=== PATIENT | female | born 1980 | race Caucasian/White ===

== ENCOUNTER 2017-02-08 14:53 | Emergency (ER) | payer SELFPAY ==
[2017-02-08 15:06] VITALS: BP 114/96; PULSE 117; RESP 16; TEMP 98.6; O2SAT 96
--- NOTE | 2017-02-08 15:10 | EDPHY ---
H & P Stated Complaint: seizure Time Seen by Provider: 02/08/17 15:07 HPI/ROS: CHIEF COMPLAINT: Seizure. HISTORY OF PRESENT ILLNESS: The patient is a 36-year-old female with a history of recurrent seizures who presents via EMS after a 2 minute tonic-clonic seizure on [facility] just prior to arrival. The seizure was witnessed by police. She reports that she normally has multiple petit mal seizures per day but has not had a grand mal seizure for over a month. She uses cannabinoid oils to treat the seizures and has not been on anti-epileptics in over a year. The seizure today was preceded by left arm numbness and palpitations which is her usual aura. She denies headache, numbness, weakness, or other complaints. No fever, chills, chest pain, shortness of breath, palpitations, vomiting, diarrhea, urinary complaints, headache, lightheadedness. LNMP one month ago. REVIEW OF SYSTEMS: Aside from elements discussed in the HPI, a comprehensive 10-point review of systems was reviewed and is negative. PAST MEDICAL HISTORY: Seizures, aneurysm, . SOCIAL HISTORY: , from [place], nonsmoker, no alcohol use. VITAL SIGNS: Reviewed by me GENERAL: Well-developed, well-nourished, resting comfortably in no respiratory distress. HEENT: Atraumatic. Eyes: No icterus, no injection. No nystagmus. Mouth: moist mucous membranes. Bite on inner aspect of right lip. Bite on left tongue. No erythema or lesions. Neck: supple with no adenopathy. LUNGS: Clear to auscultation bilaterally, no wheezes, rhonchi or rales. CARDIAC: Regular rate and rhythm, no rubs, murmurs or gallops. ABDOMEN: Soft, nontender, nondistended, bowel sounds normal. BACK: No CVA tenderness. EXTREMITIES: No trauma. No edema. Range of motion is normal throughout. NEURO: Alert and oriented, grossly nonfocal. SKIN: Warm and dry, no rash. PSYCHIATRIC: Normal mentation, no agitation. Portions of this note were transcribed by a medical translator. I personally performed a history, physical exam, medical decision making, and confirmed accuracy of information the transcribed note. Source: Patient Exam Limitations: No limitations - Personal History LMP (Females 10-55): 22-28 Days Ago Tetanus Vaccine Date: > 10 YEARS - Medical/Surgical History Hx Asthma: No Hx Chronic Respiratory Disease: No Hx Diabetes: No Hx Cardiac Disease: No Hx Renal Disease: No Hx Cirrhosis: No Hx Alcoholism: No Hx HIV/AIDS: No Hx Splenectomy or Spleen Trauma: No Other PMH: PMH: SZ - Social History Smoking Status: Never smoked Constitutional: Initial Vital Signs Temperature (C) 37 C 02/08/17 15:03 Heart Rate 117 H 02/08/17 15:03 Respiratory Rate 16 02/08/17 15:03 Blood Pressure 114/96 H 02/08/17 15:03 O2 Sat (%) 96 02/08/17 15:03 O2 Delivery Mode Room Air Allergies/Adverse Reactions: morphine Allergy (Verified 05/04/16 05:07) Home Medications: Medication Instructions Recorded Lacosamide [VIMPAT] 05/04/16 Oxcarbazepine [Trileptal] 05/04/16 levETIRAcetam [Keppra] 05/04/16 levETIRAcetam [Keppra 500 mg (*)] 500 mg PO BID #30 tab 02/08/17 Medical Decision Making ED Course/Re-evaluation: 36-year-old female with a known seizure disorder presents after a 2-minute witnessed grand mal seizure just prior to arrival. She usually has multiple petit mal seizures per day but has not had a grand mal in over a month. She does not take anti-epileptic medications. I reviewed her medical notes from [facility]. She was last here 8 months ago. After I completed my exam she began to feel numbness in her left hand and became tachycardic at 145. I laid her back and after a few minutes she was completely back to normal and not tachycardic. An IV was established and labs ordered. I do not think she needs a head CT at this time. I reviewed the patient's blood work. CO2 low at 12. WBC elevated at 13k. She is requesting discharge and has self-extricated her IV line. I feel she is safe for discharge. She understands to follow up with neurology. Differential Diagnosis: Diff dx of patient seizure considered including but not limited to epilepsy, electrolyte abnormalities, drug or alcohol intoxication, drug or alcohol withdrawl, intracranial abnormalities, pseudoseizure. - Data Points Laboratory Results: Laboratory Results 02/08/17 15:00 02/08/17 15:00 Medications Given: Discontinued Medications Sodium Chloride (Ns) 1,000 mls @ 0 mls/hr IV ONCE ONE PRN Reason: Wide Open Stop: 02/08/17 15:26 Last Admin: 02/08/17 15:41 Dose: Not Given Departure - Departure Disposition: Home, Routine, Self-Care Clinical Impression: Seizure, Seizure disorder Condition: Good Instructions: Recurrent Seizures in Adults (ED) Additional Instructions: Call Dr. Henning, neurology, tomorrow to set up a follow up appointment. Return for any serious worsening of condition. Referrals: Bob Henning DO [Medical Doctor] - As per Instructions Report Scribed for: Dennise Cardona Report Scribed by: Ezra Bergman Date of Report: 02/08/17 Time of Report: 15:14
[2017-02-08] MEDS ORDERED: NS 1,000 ML IV ONE (15:25)
[2017-02-08 15:32] LABS: % IMMATURE GRANULYOCYTES 0.3 % (0.0-1.1); ABSOLUTE IMMATURE GRANULOCYTES 0.04 10^3/uL (0.00-0.10); ADD DIFF? NO; ADD MORPH? NO; ADD SCAN? NO; ATYPICAL LYMPHOCYTE FLAG 10 (0-99); FRAGMENT RBC FLAG 0 (0-99); HEMATOCRIT 49.9 % (38.0-47.0); LEFT SHIFT FLG 0 (0-99); LIPEMIA HEMOLYSIS FLAG 90 (0-99); MEAN CELL HEMOGLOBIN 30.5 pg (27.9-34.1); MEAN CELL HEMOGLOBIN CONCENTR. 34.1 g/dL (32.4-36.7); MEAN CELL VOLUME 89.4 fL (81.5-99.8); MEAN PLATELET VOLUME 11.1 fL (8.7-11.7); PLATELET CLUMPS FLAG 0 (0-99); PLATELET COUNT 321 10^3/uL (150-400); RED BLOOD CELL COUNT 5.58 10^6/uL (4.18-5.33)
[2017-02-08 15:36] LABS: ANION GAP 21 mEq/L (8-16); CALCIUM 9.9 mg/dL (8.5-10.4); CARBON DIOXIDE 12 mEq/l (22-31); CHLORIDE 102 mEq/L (97-110); CREATININE 0.8 mg/dL (0.6-1.0); GLOMERULAR FILTRATION RATE > 60; GLUCOSE 111 mg/dL (70-100); POTASSIUM 4.3 mEq/L (3.5-5.2); SODIUM 135 mEq/L (134-144)
== END 2017-02-08 15:48 | disposition home or self-care (01) ==
LOC: EDUNIT#
DX: G40.909 Epilepsy, unspecified, not intractable, without status epilepticus (principal)

== ENCOUNTER 2017-02-08 20:50 | Emergency (ER) | payer SELFPAY ==
[2017-02-08 21:02] VITALS: RESP 16; O2SAT 99
--- NOTE | 2017-02-08 21:10 | EDPHY ---
H & P Stated Complaint: Seizure HPI/ROS: CHIEF COMPLAINT: Seizure. HISTORY OF PRESENT ILLNESS: The patient is a 36-year-old female with a seizure disorder who presents via EMS after a seizure just prior to arrival. She was seen earlier in the ED today for a grand mal seizure. She was discharged and had 2 more seizures while walking to [place]. She reports that she hit her head when she seized. She usually has 1 grand mal seizure per month. She denies substance abuse today. No numbness, weakness, headache, fever , chills, chest pain, shortness of breath, palpitations, vomiting, diarrhea, urinary complaints, lightheadedness. She is somewhat oriented to person, location, month, and year with prompting, but is clearly confused. REVIEW OF SYSTEMS: Aside from elements discussed in the HPI, a comprehensive 10-point review of systems was reviewed and is negative. PAST MEDICAL HISTORY: Seizure disorder, , aneurysm. SOCIAL HISTORY: Homeless, . VITAL SIGNS: Reviewed by me GENERAL: Disheveled, resting comfortably in no respiratory distress. HEENT: Atraumatic. Eyes: No icterus, no injection. Mouth: moist mucous membranes. No erythema or lesions. Neck: supple with no adenopathy. LUNGS: Clear to auscultation bilaterally, no wheezes, rhonchi or rales. CARDIAC: Regular rate and rhythm, no rubs, murmurs or gallops. ABDOMEN: Soft, nontender, nondistended, bowel sounds normal. BACK: No CVA tenderness. EXTREMITIES: No trauma. No edema. Range of motion is normal throughout. NEURO: Alert and oriented, grossly nonfocal. SKIN: Warm and dry, no rash. PSYCHIATRIC: Normal mentation, no agitation. Portions of this note were transcribed by a nuclear medical technologist. I personally performed a history, physical exam, medical decision making, and confirmed accuracy of information the transcribed note. Source: Patient Exam Limitations: No limitations - Personal History LMP (Females 10-55): 22-28 Days Ago Tetanus Vaccine Date: > 10 YEARS - Medical/Surgical History Hx Asthma: No Hx Chronic Respiratory Disease: No Hx Diabetes: No Hx Cardiac Disease: No Hx Renal Disease: No Hx Cirrhosis: No Hx Alcoholism: No Hx HIV/AIDS: No Hx Splenectomy or Spleen Trauma: No Other PMH: PMH: SZ - Social History Smoking Status: Never smoked Constitutional: Initial Vital Signs Temperature (C) 36.4 C 02/08/17 21:00 Heart Rate 74 02/08/17 21:00 Respiratory Rate 16 02/08/17 21:00 Blood Pressure 123/98 H 02/08/17 21:00 O2 Sat (%) 99 02/08/17 21:00 O2 Delivery Mode Room Air Allergies/Adverse Reactions: morphine Allergy (Verified 05/04/16 05:07) Home Medications: Medication Instructions Recorded Lacosamide [VIMPAT] 05/04/16 Oxcarbazepine [Trileptal] 05/04/16 levETIRAcetam [Keppra] 05/04/16 levETIRAcetam [Keppra 500 mg (*)] 500 mg PO BID #30 tab 02/08/17 Medical Decision Making - Diagnostics Imaging Results: Impression: Normal CT of the head. Specifically, a seizure focus is not identified. Dictated By: Dennys Jaime MD Imaging: Discussed imaging studies w/ automatic embroidery machine tender Radiologist ED Course/Re-evaluation: 36-year-old female with a seizure disorder presents via EMS with her third seizure today. I saw this patient earlier in the afternoon after a grand mal seizure. After discharge she seized two more times. She has a normal exam at this time. She will get a head CT this time. 1L IV saline administered for hydration. 2145: Head CT results conveyed to me by the radiologist as no change from previous. Patient provided with script for Keppra 500mg BID and given first dose in ED. Encouraged to follow up with Dr. Hameed Differential Diagnosis: Differential considered for patient presenting complaints considered including but not limited to seizure, petite mal seizure, electrolyte abnormalities, head trauma, intracranial pathology, pseudo seizure, drug or alcohol withdrawl, drug or alcohol intoxication. - Data Points Laboratory Results: Laboratory Results 02/08/17 21:00 02/08/17 21:00 Medications Given: Discontinued Medications Sodium Chloride (Ns) 1,000 mls @ 0 mls/hr IV ONCE ONE PRN Reason: Wide Open Stop: 02/08/17 21:16 Last Admin: 02/08/17 21:33 Dose: 1,000 mls Departure - Departure Disposition: Home, Routine, Self-Care Clinical Impression: Seizure Condition: Good Instructions: Recurrent Seizures in Adults (ED) Additional Instructions: Take Keppra as prescribed. Call Dr. Henning, neurology, tomorrow to set up a follow up appointment. Return for any serious worsening of condition. Referrals: Bob Henning, [Medical Doctor] - As per Instructions Prescriptions: levETIRAcetam [Keppra 500 mg (*)] 500 mg PO BID #30 tab Report Scribed for: Dennise Cardona Report Scribed by: Ezra Bergman Date of Report: 02/08/17 Time of Report: 21:12
[2017-02-08] MEDS ORDERED: NS 1,000 ML IV ONE (21:15)
[2017-02-08 21:28] LABS: % IMMATURE GRANULYOCYTES 0.6 % (0.0-1.1); ABSOLUTE IMMATURE GRANULOCYTES 0.06 10^3/uL (0.00-0.10); ADD DIFF? NO; ADD MORPH? NO; ADD SCAN? NO; ATYPICAL LYMPHOCYTE FLAG 0 (0-99); FRAGMENT RBC FLAG 0 (0-99); HEMATOCRIT 46.7 % (38.0-47.0); HEMOGLOBIN 16.1 g/dL (12.6-16.3); LEFT SHIFT FLG 0 (0-99); LIPEMIA HEMOLYSIS FLAG 90 (0-99); MEAN CELL HEMOGLOBIN 29.7 pg (27.9-34.1); MEAN CELL HEMOGLOBIN CONCENTR. 34.5 g/dL (32.4-36.7); MEAN PLATELET VOLUME 10.8 fL (8.7-11.7); PLATELET CLUMPS FLAG 0 (0-99); PLATELET COUNT 266 10^3/uL (150-400); RED BLOOD CELL COUNT 5.43 10^6/uL (4.18-5.33); RED CELL DISTRIBUTION WIDTH 13.9 % (11.5-15.2)
[2017-02-08 21:36] LABS: ANION GAP 16 mEq/L (8-16); CALCIUM 9.7 mg/dL (8.5-10.4); CARBON DIOXIDE 17 mEq/l (22-31); CHLORIDE 101 mEq/L (97-110); CREATININE 0.8 mg/dL (0.6-1.0); ETHANOL SERUM < 10 mg/dL (0-10); GLOMERULAR FILTRATION RATE > 60; GLUCOSE 121 mg/dL (70-100); POTASSIUM 4.5 mEq/L (3.5-5.2); SODIUM 134 mEq/L (134-144)
[2017-02-08] MEDS ORDERED: levETIRAcetam 500 MG TAB ONE (22:08)
[2017-02-08 22:17] VITALS: BP 108/85; PULSE 68; TEMP 97.9
== END 2017-02-08 22:17 | disposition home or self-care (01) ==
LOC: EDUNIT#
DX: G40.909 Epilepsy, unspecified, not intractable, without status epilepticus (principal)
CPT/HCPCS: G0480

== ENCOUNTER 2018-03-25 11:37 | Emergency (ER) | payer SELFPAY ==
--- NOTE | 2018-03-25 12:11 | EDPHY ---
HPI/HX/ROS/PE/MDM Narrative: CHIEF COMPLAINT: Seizure HPI: The patient is a 37 y/o female with a seizure disorder who arrives via EMS after a witnessed seizure on [facility] today. She says she was playing her guitar then "blacked out and woke up in the back of the ambulance." Per EMS, bystanders reported seizure activity. She denies any significant injuries from the event. She does not take any medications for her seizures and thinks her last one was a few months ago. She does use cannabinoids to treat her seizures and is refusing any further care or medications here. REVIEW OF SYSTEMS: Aside from elements discussed in the HPI, a comprehensive 10-point review of systems was reviewed and is negative. PMH: Seizure disorder, , aneurysm SOCIAL HISTORY: Transient, . Prior medical records reviewed including ED visit 02/08/17 for seizure. PHYSICAL EXAM: General:Patient is alert, in no acute distress. ENT:Eyes are normal to inspection. ENT inspection normal. Neck: Normal inspection. Full range of motion. Respiratory:No respiratory distress. Breath sounds normal bilaterally. Cardiovascular: Regular rate and rhythm. Strong peripheral pulses. Normal cap refill. Abdomen:The abdomen is nontender to palpation. There are no peritoneal signs. Back: Normal to inspection. No tenderness to palpation. Skin: Normal color. No rash. Warm and dry. Extremities: Normal appearance. Full range of motion. Neuro: Oriented x3. Normal motor function. Normal sensory function. ED Course: This is a 37 y/o female with a seizure disorder that she treats with cannabinoids and [place]. She does not remember the incident, but feels at baseline currently and is refusing further care or medication for her seizure. Her exam is normal. She will be discharged in good condition with referral to neurology and standard seizure precautions. She is comfortable with this plan. General Time Seen by Provider: 03/25/18 12:04 Initial Vital Signs: Initial Vital Signs Temperature (C) 36.6 C 03/25/18 11:42 Heart Rate 116 H 03/25/18 11:42 Respiratory Rate 18 03/25/18 11:42 Blood Pressure 141/89 H 03/25/18 11:42 O2 Sat (%) 97 03/25/18 11:42 O2 Delivery Mode Room Air Allergies/Adverse Reactions: morphine Allergy (Verified 03/25/18 11:44) Home Medications: Medication Instructions Recorded Lacosamide [VIMPAT] 05/04/16 Oxcarbazepine [Trileptal] 05/04/16 levETIRAcetam [Keppra] 05/04/16 levETIRAcetam [Keppra 500 mg (*)] 500 mg PO BID #30 tab 02/08/17 Departure - Departure Disposition: Home, Routine, Self-Care Clinical Impression: Seizure Condition: Good Instructions: Recurrent Seizures in Adults (ED) Additional Instructions: Follow up with neurologist if you desire medical management of your seizure disorder. Do not drive or operate machinery until cleared by a neurologist to do so. Return to the ED for any worsening of condition. Referrals: Usman Hameed MD [Medical Doctor] - As per Instructions Report Scribed for: Quincy Ospina Report Scribed by: Marita Cunha Date of Report: 03/25/18 Time of Report: 12:11 Physician Review and Approval Statement: Portions of this note were transcribed by an ED scribe. I personally performed the history, physical exam, and medical decision making; and confirm the accuracy of the information in the transcribed note.
[2018-03-25 12:31] VITALS: BP 122/62
== END 2018-03-25 12:30 | disposition home or self-care (01) ==
LOC: EDUNIT#
DX: G40.909 Epilepsy, unspecified, not intractable, without status epilepticus (principal)

== ENCOUNTER 2018-07-05 14:03 | Emergency (ER) | payer BC, OTHER ==
--- NOTE | 2018-07-05 14:07 | EDPHY ---
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 - Social History Smoking Status: Never smoked Time Seen by Provider: 07/05/18 14:04 Constitutional: Initial Vital Signs Temperature (C) 36.7 C 07/05/18 14:10 Heart Rate 84 07/05/18 14:10 Respiratory Rate 16 07/05/18 14:10 Blood Pressure 124/74 H 07/05/18 14:10 O2 Sat (%) 95 07/05/18 14:10 O2 Delivery Mode Room Air Allergies/Adverse Reactions: morphine Allergy (Verified 07/05/18 14:09) Home Medications: Medication Instructions Recorded Lacosamide [VIMPAT] 05/04/16 Oxcarbazepine [Trileptal] 05/04/16 levETIRAcetam [Keppra] 05/04/16 levETIRAcetam [Keppra 500 mg (*)] 500 mg PO BID #30 tab 02/08/17 Medical Decision Making ED Course/Re-evaluation: CHIEF COMPLAINT: AMS HISTORY OF PRESENT ILLNESS: This patient is a 37 year old female with history of seizure disorder, pseudotumor cerebri, who arrives via EMS for evaluation of altered mental status. Earlier today, marion called EMS after the patient was seen wandering about in traffic and in and out of stores, acting strangely. Per nurse summary of EMS report, the patient's reports she has similar symptoms 1-2 times per year, related to her seizures. She did not have any witnessed seizure activity, but the patient states she thinks she did have a seizure today. She does take her Keppra regularly as prescribed. Further HPI difficult to obtain due to patient's altered mental status. She does seem somewhat postictal throughout my evaluation. REVIEW OF SYSTEMS: A comprehensive 10 system review of systems unobtainable due to patient's altered mental status. PHYSICAL EXAM: HR, BP, O2 Sat, RR. Temp noted General Appearance: Alert, well hydrated, appropriate, and non-toxic appearing. Head: Atraumatic without scalp tenderness or obvious injury Eyes: Pupils equal, round, reactive to light and accommodation, EOMI, no trauma , no injection. Ears: Clear bilaterally, no perforation, normal landmarks Nose: Atraumatic, no rhinorrhea, clear. Throat: There is no erythema or exudates, no lesions, normal tonsils, mucus membranes moist. Neck: Supple, 2+ carotid upstroke, nontender, no lymphadenopathy. Respiratory: No retractions, no distress, no wheezes, and no accessory muscle use. Lungs are clear to auscultation bilaterally. Cardiovascular: Regular rate and rhythm, no murmurs, rubs, or gallops. Bilateral carotid, radial, dorsalis pedis, and posterior tibial pulses intact. Good capillary refill all extremities. Gastrointestinal: Abdomen is soft, nontender, non-distended, no masses, no rebound, no guarding, no peritoneal signs. Musculoskeletal: Normal active ROM of all extremities, atraumatic. Neurological: Alert, appropriate, and interactive. The patient has normal DTRs and non-focal cranial nerves, motor, sensory, and cerebellar exam. Skin: No rashes, good turgor, no nodules on palpation. Past medical history: Pseudotumor cerebri, seizure disorder (Keppra). Past surgical history: Noncontributory. Family history: Noncontributory. Social history: . Transient. Staying in [place] currently. DIFFERENTIAL DIAGNOSIS: The differential diagnosis for the patient's altered mental status included but was not limited to hypoglycemia, infectious process, electrolyte abnormality, head injury, neurologic process, anemia, cardiac process, and intoxicants. MEDICAL DECISION [id number] y/o female with history of seizure disorder, pseudotumor cerebri, presents with altered mental status. Plan for labs including CBC, chemistries, BHCG, urine tox screen, EtOH, acetaminophen, salicylates. Laboratory results largely unremarkable. Patient has attempted to leave the emergency department several times and continues to appear confused and altered. Plan for mental health evaluation. (Massimo Foote) 11:00 p.m., the patient is awaiting behavioral health evaluation. There have been no issues under my care. Care turned over to Dr. Shawn Nielson at this time. (Phoebe Jewell) 0700: Patient has been seen by mental health. Patient is safe for discharge. Contracts for safety. Denies suicidal homicidal ideation. She is homeless however she wants to go spend time with her current . She denies wanting to hurt herself or anybody else. She is acting appropriately. She is safe for discharge. Has been seen by [facility]. (Shawn Nielson) - Data Points Laboratory Results: Laboratory Results 07/05/18 14:22 07/05/18 14:22 07/05/18 22:44 Urine Opiates Screen NEGATIVE (NEGATIVE) Urine Barbiturates NEGATIVE (NEGATIVE) Ur Phencyclidine Scrn NEGATIVE (NEGATIVE) Ur Amphetamine Screen NEGATIVE (NEGATIVE) U Benzodiazepines Scrn NEGATIVE (NEGATIVE) Urine Cocaine Screen NEGATIVE (NEGATIVE) U Marijuana (THC) Screen NON-NEGATIVE H (NEGATIVE) Medications Given: Discontinued Medications Lorazepam (Ativan) 1 mg PO EDNOW ONE Stop: 07/06/18 03:44 Last Admin: 07/06/18 03:49 Dose: 1 mg Departure - Departure Disposition: Home, Routine, Self-Care Clinical Impression: Psychosis Qualifiers: Psychosis type: other Qualified Code(s): F28 - Other psychotic disorder not due to a substance or known physiological condition Condition: Good Instructions: Psychotic Disorder (ED) Referrals: Patient,NotPresent [Unknown] - As per Instructions [facility] [Clinic] - As per Instructions Report Scribed for: Massimo Foote Report Scribed by: Donna Harrison Date of Report: 07/05/18 Time of Report: 18:46
[2018-07-05 14:34] LABS: PLATELET COUNT 283 10^3/uL (150-400)
[2018-07-05] MEDS ORDERED: IOPAMIDOL (ISOVUE-300) 100 ML BTL ONE (14:55)
[2018-07-06] MEDS ORDERED: LORazepam 1 MG TAB PO ONE (03:43)
[2018-07-06 07:28] VITALS: BP 141/65
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
--- NOTE | 2018-07-06 10:04 | ASMTTCLDSP ---
TLC Discharge Disposition Disposition: Answers: Discharge If Answers: Yes DISCHARGED: Patient/family given suicide hotline info & [employer] brochure? Disposition Notes: Notes: Pt stated commitment or ability to keep self safe, denied thoughts of self harm or harm to others. Discharge Concerns/Recommendations: Notes: In consultation with [facility] ED physician, Shawn Nielson MD, Dr. Nielson concurred that pt does not appear to meet 27-65 criteria requiring psychiatric hospitalization as pt does not appear to be an imminent risk of harm to self/others/gravely disabled due to a mental illness . Was patient given the Answers: Not applicable Inpatient Behavioral Health Prohibited Belongings List while in the ED? Date Signed: 07/06/2018 10:04 AM Electronically Signed By:Peng Sommers
== END 2018-07-06 07:29 | disposition home or self-care (01) ==
LOC: EDUNIT#
DX: F28 Other psychotic disorder not due to a substance or known physiological condition (principal); G93.2 Benign intracranial hypertension; Z86.69 Personal history of other diseases of the nervous system and sense organs
CPT/HCPCS: 80305; G0480; Q9967